=== PATIENT | female | born 1940 | race American Indian/Alaskan Native ===

== ENCOUNTER 2016-03-10 11:37 | Outpatient (CLI) | payer MEDICARE ==
--- NOTE | 2016-03-10 13:03 | Mammography Report ---
Right mammogram: The patient has had a left mastectomy. No prior exams for comparison. Routine views of the right breast demonstrates that in the CC view is a fairly well demarcated low density nodule measuring 16 mm just lateral to the nipple. This is not identified in the lateral view. In the lateral view however there is a similar sized finding of higher density noted just below the nipple anteriorly which is not clearly seen in the CC view. Although these are of same size the densities are considerably different. The remainder the breast pattern is heterogeneous and unremarkable. Scattered benign-appearing calcifications are noted. CAD not captured. Impression: The low density nodule in the CC view is consistent with fat but not the nodule in the lateral projection. Recommendation: Spot compression imaging of the right breast and ultrasound as needed. BI-RADS CATEGORY: 0 = Needs additional imaging evaluation ACR BI-RADS MAMMOGRAPHIC CODES: 0 = Needs additional imaging evaluation; 1 = Negative; 2 = Benign; 3 = Probably benign; 4 = Suspicious; 5 = Malignant; 6 = Known biopsy-proven malignancy COMMENT: 1. Dense breast tissue, i.e., adenosis, fibrocystic changes, etc., may obscure an underlying neoplasm. 2. Approximately 10% of cancers are not detected with mammography. 3. A negative mammography report should not delay biopsy if a clinically suspicious mass is present.
== END 2016-03-10 11:38 | disposition home or self-care (01) ==
LOC: MAMMO 11:37
PROVIDERS: ATTEND Internal Medicine Hematology & Oncology
DX: Z12.31 Encounter for screening mammogram for malignant neoplasm of breast (principal); Z90.12 Acquired absence of left breast and nipple
CPT/HCPCS: G0202-52

== ENCOUNTER 2016-05-12 12:48 | Outpatient (CLI) | payer MEDICARE ==
--- NOTE | 2016-05-12 14:08 | Mammography Report ---
Spot compression magnification and sonographic examination low-density nodule outer and lower right breast: Findings: On spot magnification view the low-density nodules are fairly well circumscribed and appear probably benign mammographically. On sonographic examination there is uniformly hypoechoic fairly well defined oval mass measuring 0.5 x 0.2 x 0.4 cm in diameter at 2:00 position. A second nodule with similar characteristics measuring 1.35 x 0.3 cm in diameter noted at 12:00 position adjacent to the nipple. Calcifications are noted within the nodules. The nodules seen on sonogram do not correspond to the nodules seen on mammogram however appear to be probably benign. Impression: Nodule seen on mammogram and sonogram are probably benign. Six-month followup with mammogram and sonogram recommended. BI-RADS CATEGORY: 3 = Probably benign ACR BI-RADS MAMMOGRAPHIC CODES: 0 = Needs additional imaging evaluation; 1 = Negative; 2 = Benign; 3 = Probably benign; 4 = Suspicious; 5 = Malignant; 6 = Known biopsy-proven malignancy COMMENT: 1. Dense breast tissue, i.e., adenosis, fibrocystic changes, etc., may obscure an underlying neoplasm. 2. Approximately 10% of cancers are not detected with mammography. 3. A negative mammography report should not delay biopsy if a clinically suspicious mass is present. COMMENT: Patient follow-up letters are generated in [employer]
== END 2016-05-12 12:49 | disposition home or self-care (01) ==
LOC: MAMMO 12:48
PROVIDERS: ATTEND Internal Medicine Hematology & Oncology
DX: R92.8 Other abnormal and inconclusive findings on diagnostic imaging of breast (principal)
CPT/HCPCS: 76642; G0206

== ENCOUNTER 2016-10-26 16:35 | Emergency (ER) | payer MEDICARE ==
[2016-10-26 18:00] LABS: Bilirubin,Urine NEG (Negative); Blood,Urine SM (Negative); Ketones,Urine NEG (Negative); Leukocyte Esterase,Urine NEG (Negative); Mucus,Urine FEW /HPF; Nitrite,Urine NEG (Negative); Protein,Urine <15 mg/dL mg/dL (Negative); Urobilinogen,Urine < 2.0 mg/dL (<2.0); WBC,Urine < 1.0 /HPF (0.0-6.0)
[2016-10-26 18:06] LABS: Hematocrit 41.2 % (30.3-42.9); Hemoglobin 13.4 gm/dl (10.1-14.3); Mean Corpuscular HGB Conc 33 % (30-34); Mean Corpuscular Hemoglobin 31 pg (28-32); Mean Corpuscular Volume 94 fl (79-97); Platelet Count 173 K/mm3 (140-440); Red Cell Distribution Width 12.7 % (13.2-15.2); White Blood Count 9.6 K/mm3 (4.5-11.0)
[2016-10-26 18:07] LABS: Alanine Aminotransferase 20 units/L (7-56); Albumin 4.5 g/dL (3.9-5); Albumin/Globulin Ratio 1.2 %; Alkaline Phosphatase 72 units/L (35-129); Anion Gap 19 mmol/L; Blood Urea Nitrogen 15 mg/dL (7-17); Calcium 8.7 mg/dL (8.4-10.2); Carbon Dioxide 23 mmol/L (22-30); Chloride 88.4 mmol/L (98-107); Glucose 151 mg/dL (65-100); Potassium 3.9 mmol/L (3.6-5.0); Sodium 126 mmol/L (137-145); Total Protein 8.2 g/dL (6.3-8.2)
--- NOTE | 2016-10-26 19:28 | Cat Scan Report ---
FINAL REPORT EXAM: CT HEAD/BRAIN WO CON HISTORY: Altered Mental Status TECHNIQUE: CT head without contrast PRIORS: None. FINDINGS: There is some limitation due to motion artifact. No acute intra-axial or extra-axial hemorrhage is identified. There is no evidence of midline shift or mass effect. The ventricles and sulci are within normal limits. Hummel-white matter differentiation is intact. No acute parenchymal abnormalities seen. Bony calvarium is grossly intact. Visualized portions of the mastoids and paranasal sinuses are unremarkable. IMPRESSION: Motion artifact noted. No acute intracranial findings identified.
[2016-10-26] MEDS ORDERED: NACL 0.9% 1000 ML 1,000 ML IV ONE (20:16)
--- NOTE | 2016-10-26 22:15 | Emergency Department Report ---
HPI - General Chief Complaint: Altered Mental Status Time Seen by Provider: 10/26/16 18:28 - HPI HPI: Patient sent from adult daycare facility because patient did not eat today. The patient didn't interact with other clients of the daycare as she usually does. Pt has M.R and caregiver thinks that patient is tired from the schedule at the daycare center. ED Past Medical Hx - Past Medical History Previous Medical History?: Yes Hx Hypertension: Yes Hx Diabetes: Yes Additional medical history: Mild Mental Retardation - Surgical History Additional Surgical History: unknown - Social History Smoking Status: Unknown if ever smoked Substance Use Type: None ED Review of Systems ROS: Stated complaint: AMS Other details as noted in HPI Comment: All other systems reviewed and negative Endocrine: no symptoms reported Gastrointestinal: as per HPI Physical Exam - Physical Exam Vital Signs: Vital Signs 10/26/16 10/26/16 10/26/16 16:48 16:50 16:56 Temperature 98.5 F Pulse Rate 71 70 Respiratory 18 16 Rate Blood Pressure Blood Pressure [Right] O2 Sat by Pulse 95 97 98 Oximetry 10/26/16 10/26/16 10/26/16 17:00 17:02 17:06 Temperature Pulse Rate Respiratory 18 Rate Blood Pressure Blood Pressure 190/86 [Right] O2 Sat by Pulse 96 100 Oximetry 10/26/16 10/26/16 10/26/16 17:15 17:29 17:30 Temperature Pulse Rate 69 71 Respiratory 16 Rate Blood Pressure 191/90 191/90 Blood Pressure [Right] O2 Sat by Pulse 98 98 Oximetry 10/26/16 10/26/16 10/26/16 17:46 18:00 19:59 Temperature Pulse Rate 72 113 H 80 Respiratory 16 21 18 Rate Blood Pressure 194/90 194/90 Blood Pressure 183/86 [Right] O2 Sat by Pulse 99 99 100 Oximetry 10/26/16 21:28 Temperature Pulse Rate 88 Respiratory 20 Rate Blood Pressure Blood Pressure 183/89 [Right] O2 Sat by Pulse 100 Oximetry Physical Exam: GENERAL: The patient is well-developed well-nourished. HEENT: Normocephalic. Atraumatic. Extraocular motions are intact. Patient has moist mucous membranes. NECK: Supple. No meningitic signs are noted. There is no adenopathy noted. CHEST/LUNGS: Clear to auscultation. There is no respiratory distress noted. HEART/CARDIOVASCULAR: Regular. There is no tachycardia. There is no gallop rub or murmur. ABDOMEN: Abdomen is soft, nontender. Patient has normal bowel sounds. There is no abdominal distention. SKIN: There is no rash. There is no edema. There is no diaphoresis. NEURO: The patient is awake, alert. The patient is cooperative. The patient has no focal neurologic deficits. The patient has normal speech and gait. Cranial nerves II through XII grossly intact, no drift. Negative Romberg MUSCULOSKELETAL: good rom in all ext ED Course Vital Signs 10/26/16 10/26/16 10/26/16 16:48 16:50 16:56 Temperature 98.5 F Pulse Rate 71 70 Respiratory 18 16 Rate Blood Pressure Blood Pressure [Right] O2 Sat by Pulse 95 97 98 Oximetry 10/26/16 10/26/16 10/26/16 17:00 17:02 17:06 Temperature Pulse Rate Respiratory 18 Rate Blood Pressure Blood Pressure 190/86 [Right] O2 Sat by Pulse 96 100 Oximetry 10/26/16 10/26/16 10/26/16 17:15 17:29 17:30 Temperature Pulse Rate 69 71 Respiratory 16 Rate Blood Pressure 191/90 191/90 Blood Pressure [Right] O2 Sat by Pulse 98 98 Oximetry 10/26/16 10/26/16 10/26/16 17:46 18:00 19:59 Temperature Pulse Rate 72 113 H 80 Respiratory 16 21 18 Rate Blood Pressure 194/90 194/90 Blood Pressure 183/86 [Right] O2 Sat by Pulse 99 99 100 Oximetry 10/26/16 21:28 Temperature Pulse Rate 88 Respiratory 20 Rate Blood Pressure Blood Pressure 183/89 [Right] O2 Sat by Pulse 100 Oximetry ED Medical Decision Making - Lab Data Result diagrams: 10/26/16 17:36 10/26/16 17:36 Critical care attestation.: If time is entered above; I have spent that time in minutes in the direct care of this critically ill patient, excluding procedure time. ED Disposition Clinical Impression: Weakness Disposition: DC-01 TO HOME OR SELFCARE Is pt being admited?: No Does the pt Need Aspirin: No Condition: Stable Referrals: PRIMARY CARE, [Primary Care Provider] - 3-5 Days
[2016-10-26 23:42] VITALS: BP 187/83
--- NOTE | 2016-10-27 07:59 | XRay Report ---
PORTABLE CHEST INDICATION: Altered mental status. COMPARISON: None similar. FINDINGS: Portable, frontal chest radiograph suggests top normal heart size. Aortic knob calcifications. Normal mediastinal and hilar contours. Clear lungs without pleural effusions or CHF. EKG leads. Few bony degenerative changes. CONCLUSION: No acute chest process, as described. Thank you for the opportunity to participate in this patient's care.
== END 2016-10-27 00:10 | disposition home or self-care (01) ==
LOC: ED 16:35
DX: R53.1 Weakness (principal); I10 Essential (primary) hypertension; E11.9 Type 2 diabetes mellitus without complications
CPT/HCPCS: 36415; 70450; 71010; 80053; 81001; 82140; 85025; 87086; 93005; 93010; 99285; J7030